=== PATIENT | female | born 1945 | race Caucasian/White ===

== ENCOUNTER 2016-08-24 06:47 | Day surgery (SDC) | payer MEDICARE, OTHER ==
[2016-08-24] MEDS ORDERED: Lidocaine 1%/Sod Bicarbonate in NS 8.4% 1 ML Syringe IV PRN (07:00)
[2016-08-24] MEDS ORDERED: Sodium Chloride 0.9% 10 ML Syringe FLUSH PRN (07:00)
[2016-08-24] MEDS: Lactated Ringers 1,000 ML IV SCH ×2 (07:06→12:02)
[2016-08-24] MEDS ORDERED: Sodium Chloride 0.9% 50 ML SDV ONE (07:15)
[2016-08-24] MEDS ORDERED: Lidocaine 1% with EPINEPHrine 1:100,000 20 ML MDV ONE (07:15)
[2016-08-24] MEDS ORDERED: Rocuronium 50 MG/5 ML Vial ONE (07:19)
[2016-08-24] MEDS ORDERED: Ondansetron 4 MG/2 ML SDV ONE (07:19)
[2016-08-24] MEDS ORDERED: fentaNYL 250 MCG/5 ML SDV ONE (07:20)
[2016-08-24] MEDS ORDERED: Midazolam 1 MG/ML 2 ML SDV ONE (07:20)
[2016-08-24] MEDS ORDERED: Propofol 200 MG/20 ML SDV ONE (07:20)
[2016-08-24] MEDS ORDERED: Lidocaine 1% 4 ML ONE (07:20)
[2016-08-24] MEDS ORDERED: Dexamethasone 4 MG/ML 5 ML MDV ONE (07:20)
--- NOTE | 2016-08-24 07:26 | PCM.PREANE ---
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) Other: Reports: Easy Bleeding (on plavix ) - Physical Assessment NPO Status Date: 08/23/16 NPO Status Time: 20:00 Pulse: 58 O2 Sat by Pulse Oximetry: 96 Respiratory Rate: 16 Blood Pressure: 145/82 Temperature: 36.7 C Height: 1.78 m Weight: 110.858 kg ASA Class: 3 Mental Status: Alert & Oriented x3 Airway Class: Mallampati = 1 Dentition: Reports: Missing Tooth/Teeth (missing right top tooth ) Thyro-Mental Finger Breadths: 2 Mouth Opening Finger Breadths: 3 ROM/Head Extension: Full Lungs: Clear to auscultation, Normal respiratory effort Cardiovascular: Regular Rate, Regular Rhythm - Lab Values: Laboratory Last Values WBC 9.02 K/mm3 (3.98-10.04) 08/24/16 07:10 RBC 4.73 M/mm3 (3.98-5.22) 08/24/16 07:10 Hgb 14.7 gm/L (11.2-15.7) 08/24/16 07:10 Hct 44.4 % (34.1-44.9) 08/24/16 07:10 MCV 93.9 fl (79.4-94.8) 08/24/16 07:10 MCH 31.1 pg (25.6-32.2) 08/24/16 07:10 MCHC 33.1 g/dl (32.2-35.5) 08/24/16 07:10 RDW Std Deviation 47.2 fL (36.4-46.3) H 08/24/16 07:10 Plt Count 244 K/mm3 (182-369) 08/24/16 07:10 MPV 9.6 fl (9.4-12.3) 08/24/16 07:10 Neut % (Auto) 61.3 % (34.0-71.1) 08/24/16 07:10 Lymph % (Auto) 24.3 % (19.3-51.7) 08/24/16 07:10 [place] % (Auto) 11.3 % (4.7-12.5) 08/24/16 07:10 Eos % (Auto) 2.7 (0.7-5.8) 08/24/16 07:10 Baso % (Auto) 0.3 % (0.1-1.2) 08/24/16 07:10 Neut # 5.53 K/mm3 (1.56-6.13) 08/24/16 07:10 Lymph # 2.19 K/mm3 (1.18-3.74) 08/24/16 07:10 [place] # 1.02 K/mm3 (0.24-0.36) H 08/24/16 07:10 Eos # 0.24 K/mm3 (0.04-0.36) 08/24/16 07:10 Baso # 0.03 K/mm3 (0.01-0.08) 08/24/16 07:10 - Allergies Allergies/Adverse Reactions: Allergies Allergy/AdvReac Type Severity Reaction Status Date / Time No Known Allergies Allergy Verified 08/23/16 16:22 - Blood Blood Available: No Product(s) Available: None - Anesthesia Plan Pre-Op Medication Ordered: None - Acknowledgements Anesthesia Type Planned: General Anesthesia Pt an Appropriate Candidate for the Planned Anesthesia: Yes Alternatives and Risks of Anesthesia Discussed w Pt/Guardian: Yes Pt/Guardian Understands and Agrees with Anesthesia Plan: Yes PreAnesthesia Questionnaire HEENT History: Reports: Cataract, Impaired vision Cardiovascular History: Reports: Heart murmur, High cholesterol, Hypertension, Other (see below) Other Cardiovascular History: carotid stenosis Respiratory History: Reports: Sleep apnea Gastrointestinal History: Reports: GERD PUBLIC HEALTH STAFF NURSE History: Reports: Other (see below) Other OB/BYN History: uterine prolapse, cystocele, rectocele, endocervical polyp Musculoskeletal History: Reports: Other (see below) Other Musculoskeletal History: lumbago with sciatica, tendon cyst excison, carpal tunnel procedure Neurological History: Reports: CVA (2011, deficit is right sided periperal vision loss) Psychiatric History: Reports: Depression Endocrine/Metabolic History: Reports: None Hematologic History: Reports: None Immunologic History: Reports: None Oncologic (Cancer) History: Reports: None Dermatologic History: Reports: None - Past Surgical History HEENT Surgical History: Reports: Cataract surgery GI Surgical History: Reports: EGD Female Surgical History: Reports: Tubal ligation - SUBSTANCE USE Smoking Status *Q: Current Every Day Smoker (0.5ppd for 50years) Second Hand Smoke Exposure: No Days Per Week of Alcohol Use: 0 Recreational Drug Use History: No - HOME MEDS Home Medications: Home Meds Aspirin [Mark Anthony Chewable Aspirin] 81 mg PO DAILY 02/28/14 [History] Clopidogrel [Plavix] 75 mg PO DAILY 02/28/14 [History] Rosuvastatin [Crestor] 10 mg PO DAILY 02/28/14 [History] amLODIPine [Norvasc] 5 mg PO DAILY #30 tab 02/28/14 [Rx] Sertraline [Zoloft] 25 mg PO DAILY 03/03/14 [History] Ascorbate Calcium [Vitamin C] 500 mg PO DAILY 08/23/16 [History] Cholecalciferol (Vitamin D3) [Vitamin D3] 1,000 unit PO DAILY 08/23/16 [History] Cyanocobalamin/FA/Pyridoxine [Folbic] 1 tab PO DAILY 08/23/16 [History] Multivitamin [Multivitamins] 1 tab PO DAILY 08/23/16 [History] Omeprazole [Omeprazole] 20 mg PO DAILY 08/23/16 [History] Ubidecarenone [Coq-10] 100 cap PO DAILY 08/23/16 [History] Vitamin E 1,000 mg PO DAILY 08/23/16 [History] - CURRENT (IN HOUSE) MEDS Current Meds: Current Medications Lactated Ringer's (Ringers, Lactated) 1,000 mls @ 125 mls/hr IV ASDIRECTED DENNYS Stop: 08/24/16 23:00 Lidocaine/Sodium Bicarbonate (Buffered Lidocaine 1% In Ns 8.4%) 0.25 ml IV ONETIME PRN PRN Reason: Prior to IV Start Stop: 08/24/16 18:00 Sodium Chloride (Saline Flush) 10 ml FLUSH ASDIRECTED PRN PRN Reason: Keep Vein Open Stop: 08/24/16 18:00 Discontinued Medications Dexamethasone (Dexamethasone) Confirm Administered Dose 20 mg .ROUTE .STK-MED ONE Stop: 08/24/16 07:21 Fentanyl (Sublimaze) Confirm Administered Dose 250 mcg .ROUTE .STK-MED ONE Stop: 08/24/16 07:21 Lidocaine HCl (Xylocaine-Mpf 1%) Confirm Administered Dose 4 mls @ as directed .ROUTE .STK-MED ONE Stop: 08/24/16 07:21 Midazolam HCl (Versed 1 Mg/Ml) Confirm Administered Dose 2 mg .ROUTE .STK-MED ONE Stop: 08/24/16 07:21 Ondansetron HCl (Zofran) Confirm Administered Dose 4 mg .ROUTE .STK-MED ONE Stop: 08/24/16 07:20 Propofol (Diprivan 20 Ml) Confirm Administered Dose 200 mg .ROUTE .STK-MED ONE Stop: 08/24/16 07:21 Rocuronium [place] (Zemuron) Confirm Administered Dose 50 mg .ROUTE .STK-MED ONE Stop: 08/24/16 07:20 Preanesthetic Assessment - ANESTHESIA/TRANSFUSION/FAMILY HX Anesthesia/Transfusion History: No Prior Anesthesia, No Prior Transfusion(s) Family History of Anesthesia Reaction: No - PHYSICAL ASSESSMENT Height: 1.78 m Weight: 110.858 kg - LAB Values: Laboratory Last Values WBC 9.02 K/mm3 (3.98-10.04) 08/24/16 07:10 RBC 4.73 M/mm3 (3.98-5.22) 08/24/16 07:10 Hgb 14.7 gm/L (11.2-15.7) 08/24/16 07:10 Hct 44.4 % (34.1-44.9) 08/24/16 07:10 MCV 93.9 fl (79.4-94.8) 08/24/16 07:10 MCH 31.1 pg (25.6-32.2) 08/24/16 07:10 MCHC 33.1 g/dl (32.2-35.5) 08/24/16 07:10 RDW Std Deviation 47.2 fL (36.4-46.3) H 08/24/16 07:10 Plt Count 244 K/mm3 (182-369) 08/24/16 07:10 MPV 9.6 fl (9.4-12.3) 08/24/16 07:10 Neut % (Auto) 61.3 % (34.0-71.1) 08/24/16 07:10 Lymph % (Auto) 24.3 % (19.3-51.7) 08/24/16 07:10 [place] % (Auto) 11.3 % (4.7-12.5) 08/24/16 07:10 Eos % (Auto) 2.7 (0.7-5.8) 08/24/16 07:10 Baso % (Auto) 0.3 % (0.1-1.2) 08/24/16 07:10 Neut # 5.53 K/mm3 (1.56-6.13) 08/24/16 07:10 Lymph # 2.19 K/mm3 (1.18-3.74) 08/24/16 07:10 [place] # 1.02 K/mm3 (0.24-0.36) H 08/24/16 07:10 Eos # 0.24 K/mm3 (0.04-0.36) 08/24/16 07:10 Baso # 0.03 K/mm3 (0.01-0.08) 08/24/16 07:10 - ALLERGIES Allergies/Adverse Reactions: Allergies Allergy/AdvReac Type Severity Reaction Status Date / Time No Known Allergies Allergy Verified 08/23/16 16:22
[2016-08-24] MEDS ORDERED: ceFAZolin 1 GM Vial ONE ×2 (07:47→10:49)
[2016-08-24] MEDS ORDERED: diphenhydrAMINE 50 MG/ML SDV IVPUSH PRN (08:20)
[2016-08-24] MEDS ORDERED: HYDROmorphone 0.5 MG/0.5 ML Syringe IVPUSH PRN (08:20)
[2016-08-24] MEDS ORDERED: fentaNYL 100 MCG/2 ML SDV IVPUSH PRN (08:20)
[2016-08-24] MEDS ORDERED: Meperidine PF 50 MG/ML Syringe IVPUSH PRN (08:20)
[2016-08-24] MEDS ORDERED: Ondansetron 4 MG/2 ML SDV IVPUSH PRN (08:20)
[2016-08-24] MEDS ORDERED: HYDROmorphone 1 MG/ML Syringe ONE ×2 (08:24→10:55)
[2016-08-24] MEDS ORDERED: Lactated Ringers 1,000 ML ONE (08:39)
[2016-08-24] MEDS ORDERED: ePHEDrine/Normal Saline 25 MG/5 ML Syringe ONE ×2 (09:28→11:04)
[2016-08-24] MEDS ORDERED: Neostigmine Methylsulfate 1 MG/ML 5 ML Syringe ONE ×2 (09:47→11:16)
--- NOTE | 2016-08-24 10:02 | PCM.POSTAN ---
POST ANESTHESIA ASSESSMENT - MENTAL STATUS Mental Status: somnolent - VITAL SIGNS Pulse Rate: 87 SaO2: 90 Resp Rate: 9 Blood Pressure: 131/71 Temperature: 36.3 C - RESPIRATORY Respiratory Status: respiratory rate WNL, airway patent, O2 saturation stable - CARDIOVASCULAR CV Status: pulse rate WNL, blood pressure stable - GASTROINTESTINAL GI Status: no symptoms - PAIN Pain Score: 0 - POST OP HYDRATION Hydration Status: adequate & stable
--- NOTE | 2016-08-24 10:13 | PCM.OPNOTE ---
- General Post-Op/Procedure Note Date of Surgery/Procedure: 08/24/16 Operative Procedure(s): Total vaginal hysterectomy, bilateral salpingo- oophorectomy, anterior, posterior colporrhaphy, mid urethral sling Pre Op Diagnosis: Uterine prolapse, cystocele, midline, rectocele, endocervical polyp Post-Op Diagnosis: Same Anesthesia Technique: General ET tube Primary Surgeon: Jorge Alberto Erickson Secondary Surgeon: Emmett Roe Anesthesia Provider: Tung Anderson Manager Special Events: Yudith Mccarthy (MS3) Fluid Replacement, Intraop: 1,700 Output, Urine Amount: 50 EBL in mLs: 50 Drain/Tube Comments:: None Complications: None Condition: Good Free Text/Narrative:: Intake & Output 08/23/16 08/24/16 08/24/16 22:59 06:59 14:59 Output Total 50 Balance -50 Patient was transported to operating room #2, and placed under general anesthesia with endotracheal placed in the low dorsal lithotomy position. Prepared and draped in sterile fashion. After examination under anesthesia revealed anterior uterus. Normal size. No adnexal masses. Patient had SCDs in place and functioning. Prior surgery. Ancef 2 g given intravenously, prior surgery. Timeout performed confirming name, date of , and procedure. The uterus was grasped, traction applied. Injecting 16 mL of 0.25% lidocaine with epinephrine in a circumferential area around the cervix. The cervix was then circumscribed. Posterior colpotomy was performed without difficulty. The uterosacral and cardinal ligaments were crossclamped LigaSure activated, and incised, proceeding cephalad. Crossclamping, activating, incising, until anterior colpotomy incision was able to be made. Then. Crossclamping, incising , after activation LigaSure. The uterus, cervix removed intact. There was a large, endocervical polyp. The left tube and ovary, and right tube and ovary appeared normal. The left tube and ovary, grasped, crossclamped at the infundibulopelvic ligament, activating LigaSure, and suture ligating with 0 Monocryl. The left tube and ovary, removed. Same procedure carried out, mass inside pursestring suture of 0 Monocryl was utilized to close. The peritoneal reflection, and peritoneal cavity. After. Sponge, needle, pack, and splint sharp count correct, x2. The posterior vaginal cuff was then closed with running, locking suture, anterior colporrhaphy was then performed by injecting proximally 5 mm to 7 mL of 0.5% lidocaine with epinephrine in the submucosal area. Undermining, incising, and pushing, the tissues cephalad. Plication sutures in place with 0 Monocryl interrupted sutures and then, suburethral. Injection of lidocaine solution performed for tissue. Dissection, and hemostasis. A 2.5 mL. Incision made, and, pushing, the bladder and urethra away from the mucosa until the obturator foramen. Could be approximated small amount of injection 1 mL in each side. At the obturator foramen made a small incision made and the trochars introduced through the obturator foramen, and confirming no penetration of the vagina. The mesh was applied, and retracted through the obturator foramen incisions utilizing large, Hegar dilator for maximum relaxation of the mesh, and the suburethral area. The mesh was cut at the skin line bilaterally. The incision suburethral at the vaginal mucosa was closed with a running suture of 3-0 Monocryl as was the incision for the anterior and posterior colporrhaphy. The redundant vaginal mucosa from the anterior colporrhaphy was removed and after closing the mucosa. With running suture of 3-0 Monocryl. The anterior, posterior vaginal cuff, proximate of 0 Monocryl, and a parallel incision was made in the perineal body 4 perineal plasty, posterior repair injecting prospect 4-5 mL of 0.25% lidocaine with epinephrine. A linda-shaped section of tissue was and undermining the vaginal mucosa. Plication sutures were then placed with 0 Monocryl approximating the in closing the rectocele. The vaginal mucosa was then suture ligated with 3-0 Monocryl running suture and the perineal body. Tissue was brought together 3-0 Monocryl subcuticular suture and transported post C. care unit in satisfactory condition. After instilling 240 mL of water into the bladder to assist in the morning. After surgery. No blood transfusions. A talked with her daughter confirming the findings of surgery. Prescription for Percocet given for 5/325, dispense 30, one or 2 by mouth every 6-8 hours, and also prescription for Motrin sent to clinic for
[2016-08-24] MEDS: Acetaminophen/oxyCODONE 325-5 MG Tab PO SCH ×2 (12:00→15:48)
--- NOTE | 2016-08-24 14:46 | PCM48HPAN ---
Post Anesthesia Note - EVALUATION WITHIN 48HRS OF ANESTHETIC Vital Signs in Normal Range: Yes Patient Participated in Evaluation: Yes Respiratory Function Stable: Yes Airway Patent: Yes Cardiovascular Function Stable: Yes Hydration Status Stable: Yes Pain Control Satisfactory: Yes Nausea and Vomiting Control Satisfactory: Yes Mental Status Recovered: Yes - COMMENTS/OBSERVATIONS Free Text/Narrative:: patient feels great, just having a difficult time completely emptying her bladder
[2016-08-24 15:54] VITALS: BP 104/76
== END 2016-08-24 15:30 | disposition home or self-care (01) ==
LOC: JD.SDS 06:47
PROVIDERS: ATTEND Obstetrics & Gynecology
PROC: 0UT97ZZ Resection of Uterus, Via Natural or Artificial Opening (ICD-10-PCS; principal; 2016-08-24)
PROC: 0UTC7ZZ Resection of Cervix, Via Natural or Artificial Opening (ICD-10-PCS; 2016-08-24)
PROC: 0UT27ZZ Resection of Bilateral Ovaries, Via Natural or Artificial Opening (ICD-10-PCS; 2016-08-24)
PROC: 0UT77ZZ Resection of Bilateral Fallopian Tubes, Via Natural or Artificial Opening (ICD-10-PCS; 2016-08-24)
PROC: 0JQC0ZZ Repair Pelvic Region Subcutaneous Tissue and Fascia, Open Approach (ICD-10-PCS; 2016-08-24)
PROC: 0JQC0ZZ Repair Pelvic Region Subcutaneous Tissue and Fascia, Open Approach (ICD-10-PCS; 2016-08-24)
PROC: 0TSD4ZZ Reposition Urethra, Percutaneous Endoscopic Approach (ICD-10-PCS; 2016-08-24)
DX: N81.4 Uterovaginal prolapse, unspecified (principal); N84.1 Polyp of cervix uteri; N84.0 Polyp of corpus uteri; N72 Inflammatory disease of cervix uteri; F32.9 Major depressive disorder, single episode, unspecified; K21.9 Gastro-esophageal reflux disease without esophagitis; I10 Essential (primary) hypertension; E78.00 Pure hypercholesterolemia, unspecified; Z79.82 Long term (current) use of aspirin; Z79.899 Other long term (current) drug therapy; F17.210 Nicotine dependence, cigarettes, uncomplicated
CPT/HCPCS: 36415; 57260; 57288; 58262; 85025; 86850; 86900; 86901; A9270; C1771; J0690; J1100; J1170; J2250; J2405; J2710; J3010; J7050; J7120; 00944; 88305; J2704

== ENCOUNTER 2024-02-26 08:10 | Emergency (ER) | payer MEDICARE, OTHER ==
[2024-02-26] MEDS: Sodium Chloride 0.9% 1,000 ML IV SCH (08:44)
[2024-02-26 08:53] LABS: BASOPHILS PERCENT AUTO 0.3 % (0.0-1.0); EOSINOPHILS PERCENT AUTO 0.4 % (0.0-6.0); HEMATOCRIT 42.2 % (37.0-47.0); HEMOGLOBIN 13.9 gm/dl (12.0-16.0); IMMATURE GRAN ABSOLUTE AUTO 0.03 K/mm3 (0.00-0.05); IMMATURE GRAN PERCENT AUTO 0.3 % (0.0-0.4); LYMPHOCYTES ABSOLUTE AUTO 1.1 K/mm3 (1.0-4.8); LYMPHOCYTES PERCENT AUTO 11.2 % (24.0-44.0); MEAN CORPUSCULAR HEMOGLOBIN 31.1 pg (28.0-32.0); MEAN CORPUSCULAR HGB CONC 32.9 g/dl (32.0-36.0); MEAN CORPUSCULAR VOLUME 94.4 fl (83.0-99.0); MEAN PLATELET VOLUME 9.3 fl (9.4-12.3); MONOCYTES ABSOLUTE AUTO 1.4 K/mm3 (0.0-0.8); MONOCYTES PERCENT AUTO 13.7 % (0.0-8.0); NEUTROPHILS ABSOLUTE AUTO 7.5 K/mm3 (1.8-7.7); NEUTROPHILS PERCENT AUTO 74.1 % (41.0-71.0); PLATELET COUNT,PLT 223 K/mm3 (150-400); RED BLOOD CELL COUNT 4.47 M/mm3 (4.10-5.30); WHITE BLOOD CELL COUNT,WBC 10.06 K/mm3 (3.9-11.3)
[2024-02-26 09:01] LABS: A/G RATIO 0.7 (1-2); ALBUMIN 2.9 g/dl (3.4-5.0); ANION GAP 13.6 (5-15); BILIRUBIN TOTAL 0.3 mg/dL (0.2-1.0); BUN/CREATININE RATIO 12.5 (14-18); CREATININE 1.2 mg/dL (0.55-1.02); EST CRCL DRUG DOSING (CG) 39.6 mL/min; POTASSIUM,K 3.6 mEq/L (3.5-5.1); PROTEIN TOTAL,TP 7.3 g/dl (6.4-8.2)
[2024-02-26] MEDS: Vancomycin 125 MG Cap PO ONE (12:23)
[2024-02-26 12:34] VITALS: BP 121/70; PULSE 80
== END 2024-02-26 12:34 | disposition home or self-care (01) ==
LOC: JD.ED 08:10
DX: A04.72 Enterocolitis due to Clostridium difficile, not specified as recurrent (principal); I10 Essential (primary) hypertension; E78.00 Pure hypercholesterolemia, unspecified; K21.9 Gastro-esophageal reflux disease without esophagitis; Z86.73 Personal history of transient ischemic attack (TIA), and cerebral infarction without residual deficits; Z79.899 Other long term (current) drug therapy
CPT/HCPCS: 36415; 80053; 85025; 87324; 87493; 96360; 99283; 99284-25; A9270-GY; J7030

== ENCOUNTER 2024-08-11 15:22 | Emergency (ER) | payer MEDICARE, OTHER ==
[2024-08-11 15:53] VITALS: BP 143/108; PULSE 83
== END 2024-08-11 20:00 | disposition home or self-care (01) ==
LOC: JD.ED 15:22
DX: S32.011A Stable burst fracture of first lumbar vertebra, initial encounter for closed fracture (principal); I10 Essential (primary) hypertension; E78.00 Pure hypercholesterolemia, unspecified; K21.9 Gastro-esophageal reflux disease without esophagitis; Z79.899 Other long term (current) drug therapy; Z79.82 Long term (current) use of aspirin; Z79.02 Long term (current) use of antithrombotics/antiplatelets; W19.XXXA Unspecified fall, initial encounter
CPT/HCPCS: 72131; 72131-26; 72192; 72192-26; 99283

== ENCOUNTER 2024-08-14 11:03 | Emergency (ER) | payer MEDICARE, OTHER ==
[2024-08-14] MEDS: oxyCODONE 5 MG Tab PO ONE (12:50)
[2024-08-14 15:59] VITALS: BP 126/74; PULSE 89
== END 2024-08-14 15:43 | disposition home or self-care (01) ==
LOC: JD.ED 11:03
DX: S32.011A Stable burst fracture of first lumbar vertebra, initial encounter for closed fracture (principal); I10 Essential (primary) hypertension; F17.210 Nicotine dependence, cigarettes, uncomplicated; E78.00 Pure hypercholesterolemia, unspecified; Z79.02 Long term (current) use of antithrombotics/antiplatelets; Z79.899 Other long term (current) drug therapy; Z86.73 Personal history of transient ischemic attack (TIA), and cerebral infarction without residual deficits; Z86.16 Personal history of COVID-19; X58.XXXA Exposure to other specified factors, initial encounter; Y93.89 Activity, other specified
CPT/HCPCS: 99283; A9270; 99284

== ENCOUNTER 2024-12-19 06:00 | Day surgery (SDC) | payer MEDICARE, OTHER ==
[2024-12-19] MEDS: Lactated Ringers 1,000 ML IV SCH (05:58)
[~2024-12-19 06:00] MED LIST: Sodium Chloride 0.9% 10 ML Syringe FLUSH PRN; Sodium Chloride 0.9% 10 ML Syringe FLUSH SCH
[2024-12-19] MEDS ORDERED: propofoL 500 MG/50 ML 50 ML ONE (06:19)
[2024-12-19] MEDS ORDERED: dexmedeTOMIDine HCl 200 MCG/2 ML SDV ONE (06:22)
[2024-12-19] MEDS ORDERED: Ondansetron 4 MG/2 ML SDV ONE (06:22)
[2024-12-19] MEDS: oxyCODONE ER 10 MG TAB.ER PO SCH (07:03)
[2024-12-19] MEDS ORDERED: ePHEDrine 50 MG/ML SDV ONE (07:17)
[2024-12-19] MEDS ORDERED: Phenylephrine 1% 10 MG/ML SDV ONE (07:17)
[2024-12-19] MEDS ORDERED: Ropivacaine 0.5% 5 MG/ML 30 ML SDV ONE (07:45)
[2024-12-19 10:53] VITALS: BP 128/60; PULSE 78
[2024-12-19] MEDS ORDERED: fentaNYL 100 MCG/2 ML SDV IVPUSH PRN (11:00)
[2024-12-19] MEDS ORDERED: Lactated Ringers 1,000 ML ONE (11:41)
[2024-12-19] MEDS: Morphine 8 MG, EPINEPHrine 0.3 MG, Cefuroxime 750 MG, Ketorolac 30 MG, Sodium Chloride ... PRN (12:45)
== END 2024-12-19 11:33 | disposition home or self-care (01) ==
LOC: JD.SDS 06:00
PROVIDERS: ATTEND Orthopaedic Surgery
DX: M17.12 Unilateral primary osteoarthritis, left knee (principal); I25.10 Atherosclerotic heart disease of native coronary artery without angina pectoris; E78.00 Pure hypercholesterolemia, unspecified; K21.9 Gastro-esophageal reflux disease without esophagitis; F17.210 Nicotine dependence, cigarettes, uncomplicated
CPT/HCPCS: 0055T; 27447; 64447; 73560; 97116; 97161; A9270; J0171; J0690; J0697; J1885; J2272; J2371; J2405; J2704; J2795; J3370; J7120; J3490